=== PATIENT | female | born 1950 | race Caucasian/White ===

== ENCOUNTER 2018-09-23 17:20 | Emergency (ER) | payer BC, OTHER ==
[~2018-09-23] VITALS: Ht 152.4 cm; Wt 72.6 kg
[~2018-09-23 17:20] MED LIST: LISI1TAB5 PO
[2018-09-23 18:04] LABS: BILIRUBIN,URINE NEGATIVE (NEG); CLARITY,URINE CLEAR; COLOR,URINE YELLOW; NITRITE,URINE NEGATIVE (NEG); PH,URINE 6.5; PROTEIN,URINE NEGATIVE (NEG-TRACE)
[2018-09-23 18:10] LABS: BARBITURATES NEG (NEG); BENZODIAZEPINES POS (NEG); CANNABINOIDS NEG (NEG); COCAINE NEG (NEG); METHADONE NEG (NEG); OPIATES NEG (NEG); PHENCYCLIDINE NEG (NEG)
[2018-09-23 18:13] LABS: AMPHETAMINE/METHAMPHETAMINE NEG (NEG)
[2018-09-23 18:18] LABS: BACTERIA,URINE FEW /HPF (0-FEW); RBC,URINE 0 /HPF (0-2); SQUAMOUS EPITHELIAL CELL,UR MOD /LPF
[2018-09-23 18:21] LABS: BASO % 1 % (0-3); EOS # 0.1 x10^3/uL (0.0-0.7); EOS % 1 % (0-3); HEMOGLOBIN 13.6 g/dL (12.0-15.5); LYMPH # 1.6 x10^3/uL (1.0-4.8); LYMPH % 24 % (24-48); MEAN CORPUSCULAR HEMOGLOBIN 29 pg (25-35); MEAN CORPUSCULAR HGB CONC 35 g/dL (31-37); MEAN CORPUSCULAR VOLUME 83 fL (79-100); MONO # 0.6 x10^3/uL (0.0-1.1); MONO % 8 % (0-9); NEUT # 4.6 x10^3uL (1.8-7.7); NEUT % 67 % (31-73); PLATELET COUNT 232 x10^3/uL (140-400); RED CELL DISTRIBUTION WIDTH 14.7 % (11.5-14.5); WHITE BLOOD COUNT 6.9 x10^3/uL (4.0-11.0)
[2018-09-23] MEDS ORDERED: MORPHINE SULFATE 2 MG/ML VIAL. IV ONE (18:30)
[2018-09-23 18:32] LABS: PROTHROMBIN TIME PATIENT 12.9 SEC (11.7-14.0)
[2018-09-23 18:37] LABS: CALCIUM 9.6 mg/dL (8.5-10.1); CREATININE 0.9 mg/dL (0.6-1.0); GFR 62.5; POTASSIUM 3.3 mmol/L (3.5-5.1)
[2018-09-23 18:42] LABS: ALBUMIN 4.3 g/dL (3.4-5.0); ALBUMIN/GLOBULIN RATIO 1.4 (1.0-1.7); MAGNESIUM 2.1 mg/dL (1.8-2.4); TOTAL BILIRUBIN 0.8 mg/dL (0.2-1.0); TOTAL PROTEIN 7.4 g/dL (6.4-8.2)
[2018-09-23] MEDS ORDERED: IOHEXOL 350 MG/ML 100 ML VIAL. IV ONE (18:45)
[2018-09-23] MEDS ORDERED: CONTRAST GIVEN. MC PRN (19:00)
--- NOTE | 2018-09-23 19:08 | PHYS DOC ---
Past Medical History Past Medical History: High Cholesterol, Hypertension Additional Past Medical Histor: BREAST CA (MINDA RICE APRN) Past Surgical History: Appendectomy, Cholecystectomy, Additional Past Surgical Histo: BILAT CARPAL TUNNEL, R MASTECTOMY (MINDA RICE APRN) Alcohol Use: None Drug Use: None (MINDA RICE APRN) Adult General Chief Complaint Chief Complaint: BACK PAIN - NO INJURY HPI HPI Patient is a 68 year old female with history of high cholesterol, hypertension who presents to the ED today complaining of 7 out of 10 throbbing intermittent mid/upper back pain that began this afternoon while she was sitting. Patient states the pain is relieved when she is walking around. She denies any urgency frequency dysuria. Denies any chest pain or shortness of breath. (MINDA RICE APRN) Review of Systems Review of Systems Constitutional: Denies fever or chills [] Eyes: Denies change in visual acuity, redness, or eye pain [] HENT: Denies nasal congestion or sore throat [] Respiratory: Denies cough or shortness of breath [] Cardiovascular: No additional information not addressed in HPI [] GI: Denies abdominal pain, nausea, vomiting, bloody stools or diarrhea [] : Denies dysuria or hematuria [] Musculoskeletal: Reports mid back pain Integument: Denies rash or skin lesions [] Neurologic: Denies headache, focal weakness or sensory changes [] All other systems were reviewed and found to be within normal limits, except as documented in this note. (MINDA RICE APRN) Current Medications Current Medications Current Medications Medications (Trade) Dose Ordered Sig/Randell Start Time Stop Time Status Last Admin Dose Admin Info (CONTRAST GIVEN -- Rx MONITORING) 1 each PRN DAILY PRN 09/23/18 19:00 09/25/18 18:59 Iohexol (Omnipaque 350 Mg/ml) 100 ml 1X ONCE 09/23/18 18:45 09/23/18 18:46 DC 09/23/18 19:07 100 ML Morphine Sulfate (Morphine Sulfate) 1 mg 1X ONCE 09/23/18 18:30 09/23/18 18:31 DC 09/23/18 18:31 1 MG Potassium Chloride (Klor-Con) 40 meq 1X ONCE 09/23/18 20:00 09/23/18 20:01 DC 09/23/18 19:52 40 MEQ (SONNY TABOR) Allergies Allergies Allergies Coded Allergies Type Severity Reaction Last Updated Verified No Known Allergies Allergy Unknown 05/02/15 Yes (SONNY TABOR) Physical Exam Physical Exam Constitutional: Well developed, well nourished, no acute distress, non-toxic appearance. [] HENT: Normocephalic, atraumatic, bilateral external ears normal, oropharynx moist, no oral exudates, nose normal. [] Eyes: PERRLA, EOMI, conjunctiva normal, no discharge. [] Neck: Normal range of motion, no tenderness, supple, no stridor. [] Cardiovascular:Heart rate regular rhythm, no murmur [] Lungs & Thorax: Bilateral breath sounds clear to auscultation [] Abdomen: Bowel sounds normal, soft, no tenderness, no masses, no pulsatile masses. [] Skin: Warm, dry, no erythema, no rash. [] Back: No tenderness, no CVA tenderness. [] Extremities: No tenderness, no cyanosis, no clubbing, ROM intact, no edema. [] Neurologic: Alert and oriented X 3, normal motor function, normal sensory function, no focal deficits noted. [] Psychologic: Affect normal, judgement normal, mood normal. [] (MINDA RICE APRN) Current Patient Data Vital Signs Vital Signs Date Time Temp Pulse Resp B/P (MAP) Pulse Ox O2 Delivery O2 Flow Rate FiO2 09/23/18 18:31 16 99 Room Air 09/23/18 17:35 98.5 74 132/62 (85) 98.5 (SONNY TABOR) Lab Values Laboratory Tests Test 09/23/18 17:42 09/23/18 18:15 Urine Collection Type Unknown Urine Color Yellow Urine Clarity Clear Urine pH 6.5 Urine Specific [place] 1.025 Urine Protein Negative mg/dL (NEG-TRACE) Urine Glucose (UA) Negative mg/dL (NEG) Urine Ketones (Stick) 40 mg/dL (NEG) Urine Blood Negative (NEG) Urine Nitrite Negative (NEG) Urine Bilirubin Negative (NEG) Urine Urobilinogen Dipstick 1.0 mg/dL (0.2 mg/dL) Urine Leukocyte Esterase Small (NEG) Urine RBC 0 /HPF (0-2) Urine WBC 1-4 /HPF (0-4) Urine Squamous Epithelial Cells Mod /LPF Urine Bacteria Few /HPF (0-FEW) Urine Mucus Slight /LPF Urine Opiates Screen Neg (NEG) Urine Methadone Screen Neg (NEG) Urine Barbiturates Neg (NEG) Urine Phencyclidine Screen Neg (NEG) Urine Amphetamine/Methamphetamine Neg (NEG) Urine Benzodiazepines Screen Pos (NEG) Urine Cocaine Screen Neg (NEG) Urine Cannabinoids Screen Neg (NEG) Urine Ethyl Alcohol Neg (NEG) White Blood Count 6.9 x10^3/uL (4.0-11.0) Red Blood Count 4.70 x10^6/uL (3.50-5.40) Hemoglobin 13.6 g/dL (12.0-15.5) Hematocrit 39.0 % (36.0-47.0) Mean Corpuscular Volume 83 fL (79-100) Mean Corpuscular Hemoglobin 29 pg (25-35) Mean Corpuscular Hemoglobin Concent 35 g/dL (31-37) Red Cell Distribution Width 14.7 % (11.5-14.5) H Platelet Count 232 x10^3/uL (140-400) Neutrophils (%) (Auto) 67 % (31-73) Lymphocytes (%) (Auto) 24 % (24-48) Monocytes (%) (Auto) 8 % (0-9) Eosinophils (%) (Auto) 1 % (0-3) Basophils (%) (Auto) 1 % (0-3) Neutrophils # (Auto) 4.6 x10^3uL (1.8-7.7) Lymphocytes # (Auto) 1.6 x10^3/uL (1.0-4.8) Monocytes # (Auto) 0.6 x10^3/uL (0.0-1.1) Eosinophils # (Auto) 0.1 x10^3/uL (0.0-0.7) Basophils # (Auto) 0.0 x10^3/uL (0.0-0.2) Prothrombin Time 12.9 SEC (11.7-14.0) Prothrombin Time INR 1.0 (0.8-1.1) Sodium Level 138 mmol/L (136-145) Potassium Level 3.3 mmol/L (3.5-5.1) L Chloride Level 99 mmol/L (98-107) Carbon Dioxide Level 28 mmol/L (21-32) Anion Gap 11 (6-14) Blood Urea Nitrogen 24 mg/dL (7-20) H Creatinine 0.9 mg/dL (0.6-1.0) Estimated GFR (Cockcroft-Gault) 62.5 BUN/Creatinine Ratio 27 (6-20) H Glucose Level 117 mg/dL (70-99) H Calcium Level 9.6 mg/dL (8.5-10.1) Magnesium Level 2.1 mg/dL (1.8-2.4) Total Bilirubin 0.8 mg/dL (0.2-1.0) Aspartate Amino Transferase (AST) 24 U/L (15-37) Alanine Aminotransferase (ALT) 28 U/L (14-59) Alkaline Phosphatase 88 U/L (46-116) Creatine Kinase 108 U/L (26-192) Creatine Kinase MB (Mass) 1.3 ng/mL (0.0-3.6) Creatine Kinase MB Relative Index 1.2 % (0-4) Troponin I Quantitative < 0.017 ng/mL (0.000-0.055) QH-Jdc-W-Type Natriuretic Peptide 18 pg/mL (0-124) Total Protein 7.4 g/dL (6.4-8.2) Albumin 4.3 g/dL (3.4-5.0) Albumin/Globulin Ratio 1.4 (1.0-1.7) Thyroid Stimulating Hormone (TSH) 2.801 uIU/mL (0.358-3.74) Laboratory Tests 09/23/18 18:15 Laboratory Tests 09/23/18 18:15 (SONNY TABOR) EKG EKG 1754Interpreted by Dr. Yo sinus rhythm heart rate 70 no STEMI[] (MINDA RICE APRN) Radiology/Procedures Radiology/Procedures [] (MINDA RICE APRN) Radiology/Procedures PROCEDURE: CT ANGIO CHEST ABD PELVIS CT angiography chest, abdomen and pelvis without and with contrast HISTORY: Back pain. Comparisons: None. TECHNIQUE: Helical noncontrast and postcontrast CT imaging of the chest, abdomen and pelvis with 3-D volume reconstructions of the vessels characterize vascular anatomy and pathology with 100 mL Omnipaque 350 intravenous contrast. Chest findings: No hyperdense intramural hematoma of the thoracic aorta on the noncontrast imaging evident. Postcontrast imaging demonstrates no thoracic aortic aneurysm or dissection. Heart size normal. No pulmonary artery emboli. Esophagus unremarkable. No adenopathy in the chest. Right mastectomy and implant reconstruction. Right middle lobe 2 mm nodule image 59. Linear scarring or atelectasis inferior lingula. Bones unremarkable. Abdomen findings: 2 hypervascular lesions involving the right and left hepatic lobes largest at the right lobe measuring 15 mm area at the left renal upper pole there is a peripheral hypervascular enhancing 9 mm lesion coronal image 49. No plaque, thrombus, dissection, aneurysm, stenosis or occlusion of the abdominal aorta or arteries. Cholecystectomy. Right kidney, adrenal glands, pancreas are unremarkable. 2 hypervascular lesions of the spleen largest measuring 12 mm. The right lower quadrant distal ileum leading up to the ileocecal junction demonstrates abnormal wall thickening and mucosal hypervascular enhancement as well as areas of stricturing, no bowel obstruction. Appendectomy. No abdominal fluid or adenopathy. Lumbar disc disease and facet spurring which are bulky with spinal canal and neural frontal stenoses severe at L3-4 and L4-L5. Pelvis findings: No plaque, thrombus, dissection, aneurysm or occlusion of the iliac arteries or common femoral arteries. Uterus, ovaries, bladder, rectum and bones are unremarkable. IMPRESSION: 1. No thoracic or abdominal aorta or iliac artery aneurysm or dissection. No pulmonary artery emboli. No acute process in the chest. 2. Distal ileitis could represent Crohn's disease versus acute infectious enteritis. 3. Nonspecific hypervascular lesions of the liver and spleen. 4. 9 mm round peripherally hypervascular lesion of the left renal upper pole, this raises the possibility of an early renal malignancy. 5. 2 mm right middle lobe pulmonary nodule. Consider follow-up imaging in 6 months. (SONNY TABOR) Course & Med Decision Making Course & Med Decision Making Pertinent Labs and Imaging studies reviewed. (See chart for details) This is a 68-year-old female patient presenting to the ED today with mid back pa in that began this afternoon. EKG is negative, troponin is normal, CBC with a normal WBC otherwise no acute findings. CMP with potassium of 3.3, patient was given oral potassium replacement. Urine analysis noted for small amount of leukocytes in the urine has squamous cell epithelium. We will still treat. He is awaiting CTA chest abdomen and pelvis to rule out any dissection. 19:07-care transferred to Sonny BURCH (MINDA RICE APRN) Course & Med Decision Making Reviewed lab and imaging findings with patient. We'll treat for urinary tract infection outpatient. CTA shows no signs of aneurysm or dissection. Patient's pain improved in the ED. Patient able to ambulate without assistance. No focal neural deficits. Patient has nonspecific hypervascular lesions of the liver and spleen as well as hypervascular lesion of the kidney. Patient is advised to follow up outpatient with her doctor. Patient states she has an appointment with Dr. Cat Neri tomorrow. We'll provide analgesics outpatient for patient's pain. Discussed the importance of follow-up and reasons to return to the ED. Patient understands and agrees with plan. Family at bedside. (SONNY TABOR) Dragon Disclaimer Dragon Disclaimer This electronic medical record was generated, in whole or in part, using a voice recognition dictation system. (MINDA RICE APRN) Departure Departure Impression: Primary Impression: UTI (urinary tract infection) Additional Impressions: Back pain Liver lesion Lesion of spleen Disposition: HOME, SELF-CARE Condition: STABLE Referrals: CAT NERI MD (PCP) Patient Instructions: Back Pain, Adult, Urinary Tract Infection Scripts Nitrofurantoin Monohyd/M-Cryst (MACROBID 100 MG CAPSULE) 100 Mg Capsule 1 CAP PO BID, #14 CAP Prov: SONNY TABOR 09/23/18 Hydrocodone/Apap 5-325 (NORCO 5-325 TABLET) 1 Each Tablet 1 TAB PO BID for 5 Days, #10 TAB Prov: SONNY TABOR 09/23/18 Problem Qualifiers MINDA RICE APRN Sep 23, 2018 19:08 SONNY TABOR Sep 23, 2018 20:09
--- NOTE | 2018-09-23 19:45 | RAD ---
CT angiography chest, abdomen and pelvis without and with contrast HISTORY: Back pain. Comparisons: None. TECHNIQUE: Helical noncontrast and postcontrast CT imaging of the chest, abdomen and pelvis with 3-D volume reconstructions of the vessels characterize vascular anatomy and pathology with 100 mL Omnipaque 350 intravenous contrast. Chest findings: No hyperdense intramural hematoma of the thoracic aorta on the noncontrast imaging evident. Postcontrast imaging demonstrates no thoracic aortic aneurysm or dissection. Heart size normal. No pulmonary artery emboli. Esophagus unremarkable. No adenopathy in the chest. Right mastectomy and implant reconstruction. Right middle lobe 2 mm nodule image 59. Linear scarring or atelectasis inferior lingula. Bones unremarkable. Abdomen findings: 2 hypervascular lesions involving the right and left hepatic lobes largest at the right lobe measuring 15 mm area at the left renal upper pole there is a peripheral hypervascular enhancing 9 mm lesion coronal image 49. No plaque, thrombus, dissection, aneurysm, stenosis or occlusion of the abdominal aorta or arteries. Cholecystectomy. Right kidney, adrenal glands, pancreas are unremarkable. 2 hypervascular lesions of the spleen largest measuring 12 mm. The right lower quadrant distal ileum leading up to the ileocecal junction demonstrates abnormal wall thickening and mucosal hypervascular enhancement as well as areas of stricturing, no bowel obstruction. Appendectomy. No abdominal fluid or adenopathy. Lumbar disc disease and facet spurring which are bulky with spinal canal and neural frontal stenoses severe at L3-4 and L4-L5. Pelvis findings: No plaque, thrombus, dissection, aneurysm or occlusion of the iliac arteries or common femoral arteries. Uterus, ovaries, bladder, rectum and bones are unremarkable. IMPRESSION: 1. No thoracic or abdominal aorta or iliac artery aneurysm or dissection. No pulmonary artery emboli. No acute process in the chest. 2. Distal ileitis could represent Crohn's disease versus acute infectious enteritis. 3. Nonspecific hypervascular lesions of the liver and spleen. 4. 9 mm round peripherally hypervascular lesion of the left renal upper pole, this raises the possibility of an early renal malignancy. 5. 2 mm right middle lobe pulmonary nodule. Consider follow-up imaging in 6 months. Exposure: One or more of the following individualized dose reduction techniques were utilized for this examination: 1. Automated exposure control 2. Adjustment of the mA and/or kV according to patient size 3. Use of iterative reconstruction technique Electronically signed by: Jacques Mojica MD (09/23/2018 7:42 PM) [facility]
[2018-09-23] MEDS ORDERED: POTASSIUM CHLORIDE 20 MEQ TABLET.ER. PO ONE (20:00)
[2018-09-23] MEDS ORDERED: NITR100C62 PO (20:19)
[2018-09-23] MEDS ORDERED: HYDR-3164 PO (20:19)
[2018-09-23 20:30] VITALS: BP 127/69
--- NOTE | 2018-09-24 07:38 | EKG ---
[facility] [address] [place] [address] Test Date: 2018-09-23 Test Time: 17:54:50 Pat Name: DANITZA TRIMBLE Department: Room: Gender: F Bending Machine Set Up Operator: : 1950 Requested By: MINAD RICE Order Number: [id number] Reading MD: Measurements Intervals Natalia Rate: 70 P: 0 AL: 176 QRS: -1 QRSD: 94 T: 37 QT: 418 QTc: 454 Interpretive Statements SINUS RHYTHM LEFTWARD AXIS OTHERWISE NORMAL ECG RI6.01 No previous ECG available for comparison
== END 2018-09-23 20:45 | disposition home or self-care (01) ==
LOC: ER 17:20
DX: N39.0 Urinary tract infection, site not specified (principal); D73.89 Other diseases of spleen; K76.9 Liver disease, unspecified; I10 Essential (primary) hypertension; E78.00 Pure hypercholesterolemia, unspecified; Z90.49 Acquired absence of other specified parts of digestive tract; Z90.89 Acquired absence of other organs
CPT/HCPCS: 36415; 71275; 74174; 80053; 80307; 81001; 82553; 83735; 83880; 84443; 84484; 85025; 85610; 93005; 96374; 99285; J2270; Q9967

== ENCOUNTER → 2019-03-31 | Outpatient (CLI) | payer BC ==
[~2019-03-31] MED LIST changes: +CONTRAST GIVEN. MC PRN; +HYDR-3164 PO; +IOHEXOL 300 MG/ML 100ML VIAL. IV ONE; +LISI1TAB19 PO; -LISI1TAB5 PO; +NITR100C62 PO
[2019-03-31 10:21] LABS: CREATININE 0.8 mg/dL (0.6-1.0); GFR 71.5
--- NOTE | 2019-03-31 13:34 | RAD ---
PQRS Compliance Statement: One or more of the following individualized dose reduction techniques were utilized for this examination: 1. Automated exposure control 2. Adjustment of the mA and/or kV according to patient size 3. Use of iterative reconstruction technique PQRS Compliance Statement: One or more of the following individualized dose reduction techniques were utilized for this examination: 1. Automated exposure control 2. Adjustment of the mA and/or kV according to patient size 3. Use of iterative reconstruction technique CT abdomen/pelvis with and without contrast CT angiography chest, abdomen and pelvis 09/23/2018 INDICATION: 9 mm left renal mass. COMPARISON: None available TECHNIQUE: Multiple axial CT images of the abdomen and pelvis were obtained before and after the intravenous administration of 75 mL Omnipaque 300. Coronal and sagittal reformats are provided. FINDINGS: Right breast prosthesis is identified. Solid noncalcified pulmonary nodules are identified. Heart size within normal limits. Small hiatal hernia. Reconstruction of hypervascular lesions in the left medial and lateral hepatic lobes with some isointense to adjacent parenchyma on delayed images. Spleen, bilateral adrenal glands and pancreas are normal in appearance. Gallbladder surgically absent. The abdominal aorta is normal in course and caliber. There are no pathologically enlarged lymph nodes in the abdomen and pelvis. There is no abdominal free fluid. There is no free intraperitoneal air. Small and large bowel are normal in caliber. There is no evidence for bowel obstruction. There are no pericolonic inflammatory changes. No pericecal inflammatory changes are identified. Appendix is not definitively visualized. There is a stable 9 mm hypoenhancing lesion in the superior pole left kidney. This finding remains indeterminate. No additional suspicious renal mass. No hydronephrosis or renal calculi. Urinary bladder is within normal limits given degree of distention. Uterus and adnexa are normal by CT. No suspicious osseous abnormality is identified. IMPRESSION: 1. Stable 9 mm hypoenhancing lesion in the superior pole of left kidney suspicious for renal neoplasm. Additional 6 month follow-up renal mass protocol may be of benefit. 2. There are 2 hypervascular lesions within the liver which become isointense to adjacent parenchyma on delayed phase images. Consideration may be given for vascular shunts versus flash fill hemangiomas. Electronically signed by: Krsitie Carmen MD (03/31/2019 1:32 PM) [id number]
== END | disposition home or self-care (01) ==
LOC: CT 09:31
PROVIDERS: ATTEND Family Medicine
DX: K44.9 Diaphragmatic hernia without obstruction or gangrene (principal); N28.9 Disorder of kidney and ureter, unspecified; R91.8 Other nonspecific abnormal finding of lung field; I10 Essential (primary) hypertension
CPT/HCPCS: 36415; 74178; 82565; Q9967

== ENCOUNTER → 2019-09-12 | Outpatient (CLI) | payer BC ==
[~2019-09-12] MED LIST changes: +IOHEXOL 240 MG/ML 50ML VIAL. PO ONE
--- NOTE | 2019-09-12 10:33 | KCIC ---
CT of the abdomen and pelvis compared to similar study dated March 31, 2019 for follow-up of renal abnormality, history of breast cancer. TECHNIQUE: Contiguous helical 3 mm axial images are obtained from the apex of diaphragm to the pelvic floor following administration of IV contrast. Images are obtained in portal venous and delayed phases. Sagittal and coronal reformations are evaluated. FINDINGS: Right breast implant. Small amount of subsegmental atelectasis in the left lung base. Advanced degenerative changes of lumbar spine with no suspicious osteoblastic grossly bone abnormalities. There is been a prior cholecystectomy. Gallbladder and bilateral adrenal glands are grossly unremarkable. There are 3 small hypodensities within the liver on the portal venous phase, one measuring 12 mm on series 2 axial image #23, one measuring 9 mm on series 2 axial was reformatted to, and the third measuring [address] series 2, image #35. The first large lesion is not included on the delayed imaging. The second image remains low-attenuation on delayed imaging, and the third becomes isodense to hepatic parenchyma on delayed imaging. All of these lesions were characterized previously as probable benign flash filling hemangiomas versus vascular shunts, imaging features today are not characteristic, and more definitive characterization with MRI of the abdomen should be considered. Spleen is normal in size, however there are a couple of focal round hyperdense enhancing lesions within the upper part of the spleen which are also not included on the delayed imaging for further characterization. These are most likely benign given their small size. The right kidney is normal. The small enhancing partially exophytic lesion at the upper pole the left kidney remains unchanged in size and appearance from the prior study. No pathologic lymphadenopathy is identified. No free or loculated fluid collections are seen. There is inhomogeneous opacification of large and small bowel, with no evidence of bowel obstruction. Postsurgical changes at cecum may reflect prior appendectomy. There is tiny calcification in the anterior mesentery just anterior to the cecum on axial image #73 which may be dystrophic soft tissue calcification or intra-abdominal appendicolith. Several mesenteric lymph nodes are again identified, most conspicuous in the right lower quadrant. None of these meet size or morphologic criteria for definite pathologic enlargement. No gross vascular abnormalities. Numerous sigmoid diverticula with no evidence of acute diverticulitis. Numerous phleboliths. No adnexal masses. IMPRESSION: 1. Stable appearing left renal enhancing mass at the upper pole suspicious for slow-growing renal cell carcinoma. Management options include serial follow-up at 6-12 month intervals versus referral for definitive therapy. 2. Multiple small hypodensities in the liver which are incompletely characterized, but most likely benign. Further evaluation with MRI for definitive assessment is recommended. 3. A few small hyperdense foci within the spleen, also most likely benign but incompletely characterized on this exam. These could also be definitively assessed with MRI. PQRS Compliance Statement: One or more of the following individualized dose reduction techniques were utilized for this examination: 1. Automated exposure control 2. Adjustment of the mA and/or kV according to patient size 3. Use of iterative reconstruction technique Electronically signed by: Sonny Rivera MD (09/12/2019 10:30 AM) [id number]
== END | disposition home or self-care (01) ==
LOC: KCIC CT 07:55
PROVIDERS: ATTEND Family Medicine
DX: K57.30 Diverticulosis of large intestine without perforation or abscess without bleeding (principal); N28.1 Cyst of kidney, acquired; J98.11 Atelectasis; Z90.49 Acquired absence of other specified parts of digestive tract
CPT/HCPCS: 74177; 82565; Q9966; Q9967

== ENCOUNTER → 2020-09-13 | Outpatient (CLI) | payer BC ==
[~2020-09-13] MED LIST changes: -LISI1TAB19 PO; +LISI1TAB37 PO
--- NOTE | 2020-09-13 15:06 | KCIC ---
PQRS Compliance Statement: One or more of the following individualized dose reduction techniques were utilized for this examinat ion: 1. Automated exposure control 2. Adjustment of the mA and/or kV according to patient size 3. Use of iterative reconstruction technique CT abdomen/pelvis with contrast 09/13/2020 8:50 AM INDICATION: Hypoenhancing lesion in the superior pole the left kidney COMPARISON: CT abdomen/pelvis 09/13/2019 TECHNIQUE: Multiple axial CT images of the abdomen and pelvis were obtained after the intravenous adm inistration of 89 mL Omnipaque 300. Coronal and sagittal reformats are provided. FINDINGS: Right breast prosthesis is partially profiled. There is subsegmental atelectasis or scarring the infe rior lingula. Similar findings identified within the medial segment right middle lobe. Lung bases are otherwise clear. Heart size within normal limits. Small hiatal hernia. Hypoattenuating lesion within the lateral segment left hepatic lobe measures 1.2 cm, stable (52 Hounsfield units). Stable hypoatte nuating lesion within the inferior right hepatic lobe measuring 0.8 cm (series 3, image 68). In the i nferior right hepatic lobe there is additional hypoattenuating lesion measuring 0.9 cm (image 82). Sp gianluca, adrenal glands, and pancreas are normal in appearance. Gallbladder surgically absent. Abdominal aorta is normal in course and caliber. No pathologically enlarged lymph nodes are identified in abdo men and pelvis. There is no free fluid or free intraperitoneal air. Mild diverticulosis. Oral contrast was administered. Opacified bowel loops since her normal mucosal f old pattern. Appendix appears surgically absent. Stomach is normal in appearance. There is a 7 x 7 x 8 mm solid contour deforming renal lesion in the superior pole the left kidney (se mala 4, image 43) which is not significantly change since the prior examination from 09/12/2019. Addit ional hypodensities are identified within the kidneys which are stable. No hydronephrosis. Urinary bl adder is within normal limits given degree of distention. No suspicious osseous abnormality is identi fied. IMPRESSION: Stable 7 x 7 x 8 mm solid lesion involving the superior pole left kidney. Findings are suspicious for solid renal neoplasm such as renal cell carcinoma. No renal vein involvement or pathologically enlar ged lymph nodes in abdomen and pelvis. Stable hypodensities within the hepatic parenchyma favoring benign etiology such as hemangioma. Electronically signed by: Kirstie Carmen MD (09/13/2020 3:04 PM) [id number]
== END ==
LOC: KCIC CT 08:01
PROVIDERS: ATTEND Family Medicine
DX: K57.30 Diverticulosis of large intestine without perforation or abscess without bleeding (principal); N28.89 Other specified disorders of kidney and ureter; Z90.49 Acquired absence of other specified parts of digestive tract
CPT/HCPCS: 74177; Q9966; Q9967